=== PATIENT | male | born 1945 | race Caucasian/White ===

== ENCOUNTER 2021-05-26 15:55 | Observation (INO) ==
[2021-05-26] MEDS ORDERED: APIXABAN 5 MG TABLET PO STA (16:18)
[2021-05-26 16:43] LABS: Basophils # 0.1 10*3/uL (0.0-0.2); Eosinophils # 0.2 10*3/uL (0.0-0.87); Eosinophils % 1.1 % (0.00-10.9); Hematocrit 48.3 VOL% (42.0-52.0); Hemoglobin 16.1 GM/DL (14.0-18.0); Immature Granulocytes % 0.5 %; Immature Granulocytes Absolute 0.07 #; Lymphocytes % 14.3 % (21.2-54.2); Mean Corpuscular HGB Conc 33.3 GM/DL (32-36); Mean Corpuscular Volume 87.2 FL (87-102); Monocytes % 9.6 % (1.7-12.7); Neutrophils % 73.5 % (38.7-73.9); Platelet Count 433 T/CUMM (130-400); Red Blood Count 5.54 MC/CUMM (3.8-5.5); Red Cell Distribution Width 14.2 % (9.3-17.3); White Blood Count 14.2 T/CUMM (4-12)
[2021-05-26 17:09] LABS: Albumin 3.2 G/DL (3.4-5.0); Bilirubin,Total 0.8 MG/DL (0.20-1.00); Calcium 8.8 MG/DL (8.5-10.1); Osmolality,Calculated 270.2 MOS/KG (273-304)
[2021-05-26] MEDS ORDERED: ONDANSETRON 4 MG/2 ML VIAL IV PRN (18:08)
[2021-05-26] MEDS ORDERED: GLUCAGON 1 MG VIAL IM PRN (18:08)
[2021-05-26] MEDS ORDERED: DEXTROSE 50% 25 GM/50 ML VIAL IV PRN (18:08)
[2021-05-26] MEDS: SODIUM CHLORIDE 0.9% 1,000 ML IV SCH (18:57)
[2021-05-26] MEDS: cefTRIAXone 2,000 MG in SODIUM CHLORIDE 0.9% 100 ML IV SCH (18:58)
[2021-05-26] MEDS ORDERED: INFLUENZA VIRUS VACCINE 0.5 ML SYRINGE IM ONE (20:07)
[2021-05-27 06:00] LABS: Basophils # 0.1 10*3/uL (0.0-0.2); Basophils % 1.2 % (0.0-0.8); Eosinophils # 0.3 10*3/uL (0.0-0.87); Eosinophils % 2.6 % (0.00-10.9); Hematocrit 44.8 VOL% (42.0-52.0); Hemoglobin 14.7 GM/DL (14.0-18.0); Immature Granulocytes % 0.7 %; Immature Granulocytes Absolute 0.08 #; Lymphocytes # 2.1 10*3/uL (1.4-4.0); Lymphocytes % 18.5 % (21.2-54.2); Mean Corpuscular HGB Conc 32.8 GM/DL (32-36); Mean Corpuscular Volume 89.1 FL (87-102); Mean Platelet Volume 9.2 FL (9.6-12.0); Monocytes % 10.5 % (1.7-12.7); Neutrophils % 66.5 % (38.7-73.9); Platelet Count 367 T/CUMM (130-400); Red Blood Count 5.03 MC/CUMM (3.8-5.5); Red Cell Distribution Width 14.4 % (9.3-17.3); White Blood Count 11.5 T/CUMM (4-12)
[2021-05-27 06:27] LABS: Calcium 8.7 MG/DL (8.5-10.1); Potassium 3.6 MMOL/L (3.5-5.1); Risk Ratio 3.49; Thyroid Stimulating Hormone 0.691 uIU/ml (0.358-3.74); VLDL Cholesterol 15.2 MG/DL
[2021-05-27] MEDS: APIXABAN 5 MG TABLET PO SCH ×2 (09:36→21:09)
[2021-05-27] MEDS: PANTOPRAZOLE 40 MG TABLET PO SCH (09:36)
[2021-05-27] MEDS: methylPREDNISolone SOD SUC 40 MG/1 ML VIAL IV SCH (17:44)
[2021-05-27] MEDS: cefTRIAXone 2,000 MG in SODIUM CHLORIDE 0.9% 100 ML IV SCH (18:05)
[2021-05-27] MEDS: SODIUM CHLORIDE 0.9% 1,000 ML IV SCH (18:27)
[2021-05-28] MEDS: methylPREDNISolone SOD SUC 40 MG/1 ML VIAL IV SCH (06:02)
[2021-05-28] MEDS ORDERED: methylPREDNISolone 4 MG TABLET PO SCH ×2 (08:30→08:41)
[2021-05-28] MEDS: APIXABAN 5 MG TABLET PO SCH (09:23)
[2021-05-28] MEDS: PANTOPRAZOLE 40 MG TABLET PO SCH (09:23)
[2021-05-28 12:42] VITALS: BP 123/75
== END 2021-05-28 12:30 | disposition home or self-care (01) ==
LOC: N.EDINP 15:55 → N.ED 15:55 → SUATTDRO 18:08 → N.3E 19:37
PROVIDERS: ADMIT Internal Medicine; ATTEND Internal Medicine